=== PATIENT | male | born 1995 | race Caucasian/White ===

== ENCOUNTER 2020-08-19 05:29 | Day surgery (SDC) | payer OTHER ==
[~2020-08-19 05:29] MED LIST: CEFAZOLIN 2 GM/D5W RTU 2 GM/50 ML RTUPB IV ONE; CEFAZOLIN 2 GM/D5W RTU 2 GM/50 ML RTUPB IV PRN; LIDOCAINE 0.5% INJ-PF (5 MG/ML) 50 ML SDV SUBCUT PRN; RINGERS SOLUTION,LACTATED 1,000 ML IV PRN
[2020-08-19] MEDS ORDERED: LIDOCAINE 0.5% INJ-PF (5 MG/ML) 50 ML SDV ONE (06:24)
[2020-08-19] MEDS ORDERED: DEXAMETHASONE SOD PHOSPHATE INJ 4 MG/1 ML VIAL ONE (06:26)
[2020-08-19] MEDS ORDERED: MIDAZOLAM 2 MG/2 ML INJ ONE (06:26)
[2020-08-19] MEDS ORDERED: ONDANSETRON HCL INJ/PF 4 MG/2 ML SDV ONE (06:26)
[2020-08-19] MEDS ORDERED: FENTANYL CITRATE INJ/PF 100 MCG/2 ML AMPUL ONE (06:26)
[2020-08-19] MEDS ORDERED: PROPOFOL INJ 200 MG/20 ML VIAL IV ONE (06:26)
[2020-08-19] MEDS ORDERED: LIDOCAINE 1% INJ-PF (10 MG/ML) 30 ML SDV ONE (07:52)
[2020-08-19] MEDS ORDERED: BUPIVACAINE HCL 0.5 % INJ/PF 30 ML SDV ONE (07:52)
[2020-08-19] MEDS ORDERED: FENTANYL CITRATE INJ/PF 100 MCG/2 ML AMPUL IV PRN ×3 (07:55)
[2020-08-19] MEDS ORDERED: MEPERIDINE HCL/PF INJ 25 MG/1 ML DISP.SYRIN IV PRN (07:55)
[2020-08-19] MEDS ORDERED: PROMETHAZINE HCL INJ 25 MG/1 ML VIAL IV PRN ×2 (07:55)
[2020-08-19] MEDS ORDERED: ONDANSETRON HCL INJ/PF 4 MG/2 ML SDV IV PRN (07:55)
[2020-08-19] MEDS ORDERED: DIPHENHYDRAMINE HCL 50 MG/ML VIAL IV PRN (07:55)
[2020-08-19] MEDS ORDERED: MORPHINE SULFATE 10 MG/ML INJ IV PRN (07:55)
--- NOTE | 2020-08-19 08:49 | Operative Report ---
Operative Report DATE OF SURGERY: 08/19/20 Operative Report: Patient was seen by me in the preoperative holding area and his operative extremity was marked with an indelible pen. He was taken to the operating room and placed supine on the operating room table where general anesthesia was induced without any apparent complication. He was prepped and draped in the normal sterile orthopedic fashion including a thigh tourniquet. A timeout for safety was taken which we identify the correct patient, the correct side, the correct procedure and that we had all necessary equipment. The patient also received preoperative Ancef prior to incision and tourniquet inflation. After all of this was verified by all parties were then proceeded with the case. The limb was exsanguinated with gravity exsanguination and the tourniquet was inflated to 250 mmHg. I measured 11 cm proximal to the distal pole of the fibula for the anticipated course of the superficial peroneal nerve. He 3 cm incision was marked out at this level approximately 2 fingerbreadths posterior to the anterior crest of the tibia. A second incision was marked out at the level of the intermuscular septum proximally 5cm distal to the fibular head. The skin was incised sharply with a 15 blade. Subcutaneous tissue was divided with Bovie electrocautery and Metzenbaum scissors. I utilized blunt dissection down to the fascia. The nerve was identified as it pierced to the intermuscular septum. The nerve was protected throughout the entirety of the case. I made a transverse incision in the anterior and lateral compartments. I bluntly dissected above the fascia creating a plane between the subcutaneous tissue and fascia. Metzenbaum scissors were then utilized to release the anterior and lateral compartments distally. Utilizing long Metzenbaum scissors I created suprafascial planes proximally. I made a proximal incision approximately 1.5 cm in length to visualize the proximal extent of the fascial release. Under direct visualization I then utilized the long Metzenbaum scissors to incise first of the anterior compartment and then secondarily the lateral compartment. Utilizing my proximal incision these fascial releases were carried proximally to the proximal extent of the compartment. The tourniquet was then dropped after 18 minutes, the incisions were packed with moist sterile gauze and pressure was held for approximately 2 minutes. There was excellent hemostasis with no significant bleeding. The wounds were copiously irrigated with sterile saline, infiltrated with a 50-50 mixture of half percent Marcaine and 1% lidocaine for postoperative pain control. The subcutaneous tissue was closed with 2-0 Vicryl and the skin was closed with interrupted horizontal mattress 3-0 nylon stitches. Xeroform and sterile dressings were placed. A gently compressive Alex wrap and LILIANA hose were then placed. The patient was extubated without any apparent complication and subsequently transferred to the PACU in good condition. He will be discharged home when he meets the criteria for same-day surgery discharge. PREOPERATIVE DIAGNOSIS: Right lower extremity exertional compartment syndrome POSTOPERATIVE DIAGNOSIS: Same OPERATION: Right lower extremity minimally invasive anterior and lateral compartment release SURGEON: PATRICIA RIVAS ANESTHESIA: GA TISSUE REMOVED OR ALTERED: NA COMPLICATIONS: None ESTIMATED BLOOD LOSS: 2 INTRAOPERATIVE FINDINGS: See operative note PROCEDURE: Right lower extremity minimally invasive anterior and lateral compartment release
[2020-08-19] MEDS ORDERED: SUCCINYLCHOLINE CHLORIDE INJ 200 MG/10 ML VIAL ONE (10:09)
[2020-08-19 10:21] VITALS: BP 115/66
== END 2020-08-19 10:10 | disposition home or self-care (01) ==
LOC: OROUT 05:29
PROVIDERS: ATTEND Orthopaedic Surgery
DX: M79.A21 Nontraumatic compartment syndrome of right lower extremity (principal); Z03.818 Encounter for observation for suspected exposure to other biological agents ruled out
CPT/HCPCS: 87635; 01470; 27600; J2250; J3490 ×3; J1100; J3010; J0330; J2405; J2704; J0690; C9803; 1470